=== PATIENT | female | born 1990 | race American Indian/Alaskan Native ===

== ENCOUNTER 2020-02-27 10:40 | Observation (INO) | payer MEDICAID ==
[2020-02-27] MEDS ORDERED: LACTATED RINGERS 500 ML IV ONE (11:05)
[2020-02-27] MEDS ORDERED: NITRAZINE (URINE TESTING PAPER) MC ONE (11:17)
[2020-02-27] MEDS ORDERED: DOCUSATE SODIUM 100 MG CAP PO PRN (13:44)
[2020-02-27] MEDS ORDERED: ACETAMINOPHEN 325 MG TAB PO PRN (13:44)
--- NOTE | 2020-02-27 13:50 | History and Physical Report ---
History of Present Illness Date of examination: 02/27/20 Date of admission: 02/27/20 Chief complaint: Leaking fluid, weakness in legs, abdominal pain History of present illness: Pt is a 30 yo at 36w6d EGA who presents by ambulance from [facility] for uterine contractions q2 minutes without ability to ambulate. She reports a gush of fluid while at the office, denies continued leaking. While in triage, contractions spaced out to q10-15 minutes, and new onset of bilateral leg weakness with decreased mobility. She also reports seeing speckles in her vision for the past several months. Her course has been complicated by migraines, GERD, history of LEEP, and rh negative status. She is GBS negative. 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 (LEEP) Social history: no significant social history - Obstetrical History Expected Date of Delivery: 03/20/20 Actual Gestation: 36 Week(s) 6 Day(s) : 1 Para: 0 Medications and Allergies Allergies Allergy/AdvReac Type Severity Reaction Status Date / Time No Known Allergies Allergy Verified 02/27/20 11:05 Review of Systems All systems: negative Constitutional: weakness Eyes: other (scotomata, chronic) Cardiovascular: no chest pain, no shortness of breath Gastrointestinal: no diarrhea, no constipation Genitourinary: contractions, no vaginal bleeding, no leakage of fluid (not currently) Musculoskeletal: shooting leg pain, leg numbness/tingling, muscle cramps, limitation of motion, gait dysfunction, frequent falls (pt fell yesterday) Neurological: motor disturbance, no head injury, no sensory deficit Psychiatric: no hallucinations - Vital Signs Vital signs: Vital Signs Pulse Pulse Ox 85 100 02/27/20 11:05 02/27/20 11:05 Temp Pulse Resp BP Pulse Ox 36.6 F L 88 20 104/63 100 02/27/20 11:11 02/27/20 12:25 02/27/20 11:11 02/27/20 11:07 02/27/20 12:25 - Physical Exam Lungs: Positive: Normal air movement Abdomen: Positive: soft. Negative: distention Uterus: Positive: enlarged (gravid) - Obstetrical FHR: category 1 Uterine Contraction Monitor Mode: External Cervical Dilatation: 1 (per RN) Results All other labs normal. Assessment and Plan A: 30 yo at 36w6d EGA Bilateral lower extremity weakness Occasional contractions without labor Membranes intact (negative Nitrazine, no pooling) P: Admit for 23 hour observation IV fluids CMP, UA, UDS, BPP Physical therapy and neurology consults Dr. Dover aware of patient
[2020-02-27 13:53] LABS: Bilirubin,Urine NEG (Negative); Blood,Urine NEG (Negative); Color,Urine Yellow (Yellow); Mucus,Urine FEW /HPF; Protein,Urine <15 mg/dL mg/dL (Negative); Urobilinogen,Urine < 2.0 mg/dL (<2.0)
[2020-02-27] MEDS ORDERED: PRENATAL VIT27-FE FUMARATE-FOLIC ACID VIT TAB PO SCH (14:00)
[2020-02-27 14:01] LABS: Amphetamine Screen,Urine Negative; Benzodiazepines Screen,Urine Negative; Cannabinoid Screen,Urine Negative; Cocaine Screen,Urine Negative; Methadone Screen,Urine Negative; Opiate Screen,Urine Negative; WBC,Urine < 1.0 /HPF (0.0-6.0)
[2020-02-27 14:09] LABS: Alanine Aminotransferase 10 units/L (7-56); Albumin 3.2 g/dL (3.9-5); Blood Urea Nitrogen 8 mg/dL (7-17); Calcium 8.4 mg/dL (8.4-10.2); Hemolysis Index 14
[2020-02-27 14:12] LABS: BUN/Creatinine Ratio 20
[2020-02-27 14:38] VITALS: BP 116/53
--- NOTE | 2020-02-27 15:58 | Ultrasound Report ---
US OB limited, US OB BPP wo non-stress INDICATION: c/o leaking. TECHNIQUE: Transabdominal. COMPARISON: None available. FINDINGS: There is a single intrauterine . Heart Rate: 139 beats per minute. Position: cephalic. Amniotic Fluid Volume: normal Amniotic Fluid Index (KARLOS) in cm (if calculated): 7.1. Biophysical Profile: breathing movements: 0 movements: 2 posture and tone: 2 Qualitative amniotic fluid volume: 2 Heart rate of 1 37 bpm. IMPRESSION: 1. Amniotic fluid is lower limits of normal with an amniotic fluid index of 7.1. 2. Biophysical profile is 8 Signer Name: Umberto Perez MD Signed: 02/27/2020 3:54 PM Workstation Name: [id number]
[2020-02-27] MEDS ORDERED: hydrOXYzine PAMOATE 25 MG CAP PO PRN (17:00)
--- NOTE | 2020-02-27 19:29 | Event Note ---
Date: 02/27/20 TAMAR Ba called stating that patient requests to leave the hospital. I discussed with the patient over the phone that I strongly recommend staying in the hospital for observation and repeat BPP due to borderline oligohydramnios and recommendation of neuro and PT consults. Pt expresses understanding.
--- NOTE | 2020-02-28 07:01 | Discharge Summary ---
Providers - Providers Date of Admission: 02/27/20 14:21 Date of discharge: 02/27/20 Attending physician: AIDEN BHATTI 02/27/20 13:43 Consult to Physician [CONS] Urgent Comment: Consulting Provider: GUY LEO Physician Instructions: Reason For Exam: Sudden onset BLE weakness, unable to ambulate Physical Therapy Evaluation and Treat [CONS] Urgent Comment: Reason For Exam: BLE weakness Primary care physician: AIDEN BHATTI Hospitalization Reason for admission: IUP - (rule out PTL/ROM, leg weakness, borderline oligohydramnios), observation Hospital course: Pt was admitted for observation and left against medical advice before evaluation by neurology and physical therapy. Condition at discharge: Undetermined Disposition: [id number] LEFT AGAINST MED ADVICE Plan - Provider Discharge Summary Additional instructions: [] Smoking cessation referral if applicable(refer to patient education folder for contact #) [] Refer to [facility] Booklet Call your doctor immediately for: * Fever > 100.5 * Heavy vaginal bleeding ( >1 pad per hour) * Severe persistent headache * Shortness of breath * Reddened, hot, painful area to leg or breast * Drainage or odor from incision. * Keep incision clean and dry at all times and follow doctor's instructions regarding bathing/showering - Follow up plan Follow up: AIDEN BHATTI MD [Primary Care Provider] - 7 Days
== END 2020-02-27 17:59 | disposition left against medical advice (07) ==
LOC: TRG 10:40 → APU 10:41 → TRG 14:19 → LD 14:21
PROVIDERS: ADMIT Obstetrics & Gynecology; ATTEND Obstetrics & Gynecology
DX: O42.913 Preterm premature rupture of membranes, unspecified as to length of time between rupture and onset of labor, third trimester (principal); O62.9 Abnormality of forces of labor, unspecified; O26.893 Other specified pregnancy related conditions, third trimester; M62.81 Muscle weakness (generalized); K21.9 Gastro-esophageal reflux disease without esophagitis; Z3A.36 36 weeks gestation of pregnancy; Z98.890 Other specified postprocedural states; Z79.899 Other long term (current) drug therapy
CPT/HCPCS: 36415; 59025; 76815; 76819; 80053; 80307; 81001; G0378